=== PATIENT | male | born 1975 | race Caucasian/White ===

== ENCOUNTER 2022-03-22 17:36 | Observation (INO) ==
[2022-03-22] MEDS ORDERED: 0.9 % Sodium Chloride 1,000 ML IVC ONE (17:52)
[2022-03-22] MEDS ORDERED: Aspirin 325 MG TABLET PO ONE (18:23)
[2022-03-22 18:31] LABS: Basophils % 0.4 %; Eosinophils # 0.1 K/mcL (0.0-0.6); Eosinophils % 0.5 %; Hematocrit 46.7 % (37.5-50.1); Hemoglobin 16.2 g/dL (12.9-16.9); Immature Granulocytes % 0.8 % (0-4); Lymphocytes # 2.1 K/mcL (0.6-4.6); Lymphocytes % 20.5 %; Mean Corpuscular HGB Conc 34.7 g/dL (31.6-35.5); Mean Corpuscular Hemoglobin 31.3 pg (28.0-33.3); Mean Corpuscular Volume 90.3 fL (83.0-100.0); Mean Platelet Volume 10.1 fL (9.4-12.4); Monocytes # 0.7 K/mcL (0.0-1.3); Monocytes % 6.5 %; Neutrophils # 7.3 K/mcL (1.6-8.9); Platelet Count 278 K/mcL (140-400); Red Blood Count 5.17 M/mcL (4.19-5.50); Red Cell Distribution Width 12.4 % (11.5-14.5); Segmented Neutrophils % 71.3 %; White Blood Count 10.2 K/mcL (4.3-11.1)
[2022-03-22 18:51] LABS: Calcium 9.3 mg/dL (8.6-10.3); Magnesium 3.2 mg/dL (1.6-2.6); Potassium 3.3 mEq/L (3.5-5.1); Prothrombin Time 10.7 Seconds (9.4-12.1)
[2022-03-22 18:52] LABS: Troponin I 0.03 ng/mL (< 0.04)
[2022-03-22 18:54] LABS: Activated Partial Thrombo Time 25.3 Seconds (26.0-36.0)
[2022-03-22 19:05] LABS: Thyroid Stimulating Hormone 2.365 mcIU/mL (0.340-5.600)
[2022-03-22] MEDS ORDERED: Potassium Chloride Elixir 20 MEQ/15 ML UDC GTUBE ONE (19:19)
[2022-03-22 19:55] LABS: Bilirubin,Urine Negative (Negative); Blood,Urine Negative (Negative); Clarity,Urine Clear (Clear); Color,Urine Colorless (Yellow); Glucose,Urine (UA) Normal (Normal); Ketones,Urine Negative (Negative); Leukocyte Esterase,Urine Negative (Negative); Nitrite,Urine Negative (Negative); PH,Urine 5.5 pH Units (5.0-8.0); Protein,Urine Negative (Neg-Trace); Specific Gravity,Urine 1.007 (1.010-1.025); Urobilinogen,Urine Normal (Normal)
[2022-03-22] MEDS ORDERED: Potassium Chloride Elixir 20 MEQ/15 ML UDC PO ONE (20:00)
[2022-03-22 20:12] LABS: Amphetamine Screen,Urine Negative ng/mL (Cutoff=1000); Barbiturate Screen,Urine Negative ng/mL (Cutoff=200); Benzodiazepines Screen,Urine Negative ng/mL (Cutoff=200); Cannabinoid Screen,Urine Positive ng/mL (Cutoff = 50); Cocaine Screen,Urine Negative ng/mL (Cutoff= 300); Opiate Screen,Urine Negative ng/mL (Cutoff=300); Phencyclidine Screen,Urine Negative ng/mL (Cutoff=25)
[2022-03-22] MEDS ORDERED: Melatonin 3 MG TABLET PO PRN (20:45)
[2022-03-22] MEDS ORDERED: Ondansetron ODT 4 MG TAB.RAPDIS SL PRN (20:45)
[2022-03-22] MEDS ORDERED: Naloxone 0.4 MG/ML INJ IVP PRN (20:45)
[2022-03-22] MEDS ORDERED: Acetaminophen 325 MG TABLET PO PRN (20:45)
[2022-03-22] MEDS ORDERED: DilTIAZem 50 MG/50 ML IV.SOLN IVC SCH (21:00)
[2022-03-22] MEDS ORDERED: clonazePAM 1 MG TABLET PO ONE (21:45)
[2022-03-22] MEDS ORDERED: Ringers Solution, Lactated 1,000 ML IVC SCH (22:00)
[2022-03-22] MEDS ORDERED: *HR* Heparin 5,000 UNIT/ML VIAL SQ SCH (22:00)
[2022-03-23] MEDS ORDERED: *HR* Heparin 5,000 UNIT/ML VIAL SQ SCH (08:00)
[2022-03-23] MEDS ORDERED: Metoprolol XL (24 HR) Succ 25 MG TAB.ER.24H PO SCH (09:00)
[2022-03-23] MEDS ORDERED: Aspirin Enteric Coated 81 MG Tablet PO SCH (09:00)
[2022-03-23] MEDS ORDERED: clonazePAM 0.5 MG TABLET PO SCH (09:00)
[2022-03-23] MEDS ORDERED: Multivit/Ca/Min/Fe/FA 1 TAB TABLET PO SCH (09:00)
== END 2022-03-22 23:59 | disposition other institution (70) ==
LOC: EMEROOARM 17:36 → 2ANU 17:36
PROVIDERS: ADMIT Internal Medicine; ATTEND Internal Medicine